=== PATIENT | male | born 1965 | race American Indian/Alaskan Native ===

== ENCOUNTER 2022-10-28 02:54 | Emergency (ER) | payer MEDICAID, SELFPAY ==
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
[2022-10-28] MEDS: diphenhydrAMINE 50 MG/ML VIAL IM (03:10)
[2022-10-28] MEDS: HALOPERIDOL 5 MG/ML VIAL IM (03:10)
[2022-10-28] MEDS: LORazepam 2 MG/ML INJ IV (03:10)
[2022-10-28] MEDS: HALOPERIDOL 5 MG/ML VIAL (03:27)
--- NOTE | 2022-10-28 03:28 | PC.NURSE ---
0327 verbal order for 5mg IM of haloperidol ordered per provider Mank.
[2022-10-28 05:52] VITALS: BP 98/54; PULSE 89; RESP 18; TEMP 36.9; O2SAT 100
[2022-10-28 06:33] LABS: UR Morphine/Opiate cutoff 300 Positive (Negative); Ur Creatinine 20 (Normal); Ur Specific Gravity 1.015 (Normal); Urine Amphetamines Positive (Negative); Urine Barbiturates Negative (Negative); Urine Benzodiazepines Negative (Negative); Urine Cocaine Negative (Negative); Urine MDMA Negative (Negative); Urine Methadone Negative (Negative); Urine Methamphetamines Positive (Negative); Urine Oxycodone Negative (Negative); Urine Phencyclidine Negative (Negative); Urine Tetrahydrocannabinol Negative (Negative); Urine Tricyclic Antidepressant Negative (Negative); Urine pH 5 (Normal)
[2022-10-28] MEDS: ACETAMINOPHEN 325 MG TABLET 650 MG PO (09:50)
[2022-10-28 11:12] VITALS: BP 117/62; PULSE 94; O2SAT 100
== END 2022-10-28 11:16 | disposition home or self-care (01) ==
PROVIDERS: Emergency Medicine; Emergency Provider Emergency Medicine
DX: F23 Brief psychotic disorder (principal); F19.959 Other psychoactive substance use, unspecified with psychoactive substance-induced psychotic disorder, unspecified
CPT/HCPCS: 80305; 96372; 96374; 99284; J1200; J1630; J2060